=== PATIENT | male | born 1950 | race Caucasian/White ===

== ENCOUNTER → 2020-08-07 | Day surgery (SDC) | payer MEDICARE, OTHER ==
[~2020-08-07] MED LIST: ALLOPURINOL300 MG PO; ASPIRIN EC81 MG PO; DICLOFENAC SODI75 MG PO; LOVAZA1 GM PO; NAPROXEN500 MG PO; NORCO 5-325 TA1 EACH PO; PERCOCET 5-3251 EACH PO
[2020-08-07 10:30] LABS: HCT 48.3 % (42.0-52.0); HGB 16.1 g/dl (13.2-18.0); MCH 29.9 pg (25.0-31.0); MCHC 33.3 g/dL (32.0-36.0); MCV 89.8 fL (78.0-100.0); MPV 9.7 fL (6.0-9.5); RBC 5.38 M/uL (4.70-6.00); RDW 14.6 % (11.5-14.0); WBC 10.6 K/uL (4.0-10.5)
[2020-08-07 10:45] LABS: ALBUMIN 3.8 g/dL (3.4-5.0); BILIRUBIN - TOTAL 1.3 mg/dL (0.2-1.0); BUN/CREAT RATIO (CALC) 22.5 RATIO; CREATININE 0.89 mg/dL (0.67-1.17); GLOBULIN (CALCULATION) 4.1 g/dL; POTASSIUM 4.1 mmol/L (3.5-5.1); TOTAL PROTEIN 7.9 g/dL (6.4-8.2)
== END | disposition home or self-care (01) ==
LOC: FAS 09:58
PROVIDERS: Surgery
DX: K61.1 Rectal abscess (principal); M10.9 Gout, unspecified; Z20.822 Contact with and (suspected) exposure to COVID-19; Z87.891 Personal history of nicotine dependence
CPT/HCPCS: 36415; 80053; 93005; J2405; J2704; J3010; J7120; U0002

== ENCOUNTER → 2020-10-12 | Day surgery (SDC) | payer MEDICARE, OTHER ==
[2020-10-12 07:39] LABS: HCT 49.2 % (42.0-52.0); HGB 16.7 g/dl (13.2-18.0); MCHC 33.9 g/dL (32.0-36.0); MCV 88.5 fL (78.0-100.0); MPV 9.7 fL (6.0-9.5); RBC 5.56 M/uL (4.70-6.00); RDW 14.5 % (11.5-14.0); WBC 4.6 K/uL (4.0-10.5)
[2020-10-12 07:54] LABS: BUN/CREAT RATIO (CALC) 17.3 RATIO; CREATININE 0.75 mg/dL (0.67-1.17); GLOBULIN (CALCULATION) 3.4 g/dL; TOTAL PROTEIN 7.4 g/dL (6.4-8.2)
== END | disposition home or self-care (01) ==
LOC: FAS 06:46
PROVIDERS: Surgery
DX: Z12.11 Encounter for screening for malignant neoplasm of colon (principal); K57.30 Diverticulosis of large intestine without perforation or abscess without bleeding; K40.90 Unilateral inguinal hernia, without obstruction or gangrene, not specified as recurrent; K62.89 Other specified diseases of anus and rectum; J44.9 Chronic obstructive pulmonary disease, unspecified; Z98.890 Other specified postprocedural states; Z79.899 Other long term (current) drug therapy; Z96.659 Presence of unspecified artificial knee joint; Z87.891 Personal history of nicotine dependence; Z82.5 Family history of asthma and other chronic lower respiratory diseases; Z82.61 Family history of arthritis; Z20.822 Contact with and (suspected) exposure to COVID-19
CPT/HCPCS: 36415; 80053; J2250; J2704; J7120

== ENCOUNTER → 2021-07-25 | Day surgery (SDC) | payer MEDICARE, OTHER ==
[~2021-07-25] VITALS: Ht 180 cm; Wt 88.0 kg
[~2021-07-25] MED LIST changes: +MOBIC7.5 MG PO
[2021-07-25 07:29] LABS: HCT 44.2 % (42.0-52.0); HGB 14.8 g/dl (13.2-18.0); MCH 29.5 pg (25.0-31.0); MCHC 33.5 g/dL (32.0-36.0); MPV 9.6 fL (6.0-9.5); RBC 5.02 M/uL (4.70-6.00); RDW 14.6 % (11.5-14.0); WBC 4.5 K/uL (4.0-10.5)
[2021-07-25 07:50] LABS: ALBUMIN 3.9 g/dL (3.4-5.0); BILIRUBIN - TOTAL 0.8 mg/dL (0.2-1.0); BUN/CREAT RATIO (CALC) 23.4 RATIO; CREATININE 0.77 mg/dL (0.67-1.17); GLOBULIN (CALCULATION) 3.3 g/dL; POTASSIUM 3.8 mmol/L (3.5-5.1); TOTAL PROTEIN 7.2 g/dL (6.4-8.2)
== END | disposition home or self-care (01) ==
LOC: FAS 06:51
PROVIDERS: Surgery
DX: K60.4 Rectal fistula (principal); E78.00 Pure hypercholesterolemia, unspecified; Z87.891 Personal history of nicotine dependence; Z79.899 Other long term (current) drug therapy
CPT/HCPCS: 36415; 80053; J1100; J1885; J2250; J2405; J2704; J3010; J7120